=== PATIENT | male | born 1985 | race Caucasian/White ===

== ENCOUNTER 2018-12-21 00:14 | Emergency (ER) | payer BC ==
[2018-12-21] MEDS ORDERED: Sodium Chloride 0.9% 10 ML Syringe FLUSH PRN ×2 (00:16)
[2018-12-21] MEDS ORDERED: Ketorolac 60 MG/2 ML SDV IM ONE (00:57)
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
[2018-12-21] MEDS ORDERED: Sodium Chloride 0.9% 1,000 ML IV SCH (02:30)
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
== END 2018-12-21 03:31 | disposition home or self-care (01) ==
LOC: LB.ED 00:14
DX: S30.0XXA Contusion of lower back and pelvis, initial encounter (principal); V86.99XA Unspecified occupant of other special all-terrain or other off-road motor vehicle injured in nontraffic accident, initial encounter
CPT/HCPCS: 36415; 72020; 72040; 80048; 80307; 85025; 96360; 96372; 99284; A0425; A0429; G0480; J1885; J7030